=== PATIENT | male | born 1980 | race Caucasian/White ===

== ENCOUNTER 2016-10-26 19:29 | Emergency (ER) | payer OTHER ==
[2016-10-26 19:33] VITALS: BP 143/85; PULSE 77; RESP 18; TEMP 98
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
[2016-10-26] MEDS ORDERED: BUPIVACAINE (PF) 0.5% 30 ML VIAL SQ STA (19:47)
[2016-10-26] MEDS ORDERED: traMADol 50 MG STARTER PACK 3 TAB BTL PO STA (20:08)
== END 2016-10-26 20:18 | disposition home or self-care (01) ==
LOC: EC 19:29
DX: K02.9 Dental caries, unspecified (principal); F17.200 Nicotine dependence, unspecified, uncomplicated; Z88.5 Allergy status to narcotic agent
CPT/HCPCS: 64400; 99282

== ENCOUNTER 2016-10-27 03:19 | Emergency (ER) | payer OTHER ==
[2016-10-27 03:26] VITALS: PULSE 76
[2016-10-27] MEDS ORDERED: HYDROcodone/APAP 5-325MG 1 EACH TAB PO STA (03:29)
[2016-10-27] MEDS ORDERED: BUPIVACAINE (PF) 0.5% 30 ML VIAL SQ STA (03:29)
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
[2016-10-27 04:04] VITALS: BP 128/74; RESP 20; TEMP 97.4
== END 2016-10-27 04:05 | disposition home or self-care (01) ==
LOC: EC 03:19
DX: K02.9 Dental caries, unspecified (principal); S02.5XXA Fracture of tooth (traumatic), initial encounter for closed fracture
CPT/HCPCS: 64400; 99282

== ENCOUNTER 2016-11-18 17:56 | Emergency (ER) | payer OTHER ==
[2016-11-18 18:49] VITALS: BP 117/73; PULSE 81; RESP 20; TEMP 97.4
[2016-11-18] MEDS ORDERED: HYDROcodone/APAP 10-325MG 1 EACH TAB PO ONE (19:33)
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
== END 2016-11-18 19:49 | disposition home or self-care (01) ==
LOC: EC 17:56
DX: K02.9 Dental caries, unspecified (principal); F17.200 Nicotine dependence, unspecified, uncomplicated; Z88.5 Allergy status to narcotic agent
CPT/HCPCS: 99283

== ENCOUNTER 2016-11-25 13:06 | Emergency (ER) | payer OTHER ==
[2016-11-25 13:11] VITALS: BP 140/76; PULSE 112; RESP 20; TEMP 97.9
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
== END 2016-11-25 14:07 | disposition home or self-care (01) ==
LOC: EC 13:06
DX: K08.89 Other specified disorders of teeth and supporting structures (principal); F17.200 Nicotine dependence, unspecified, uncomplicated; Z88.5 Allergy status to narcotic agent
CPT/HCPCS: 99282

== ENCOUNTER 2016-12-05 09:42 | Emergency (ER) | payer OTHER ==
[2016-12-05 10:08] VITALS: RESP 20; TEMP 97.5
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
[2016-12-05 11:28] VITALS: BP 110/72; PULSE 89
== END 2016-12-05 11:20 | disposition home or self-care (01) ==
LOC: EC 09:42
DX: K04.7 Periapical abscess without sinus (principal); K02.9 Dental caries, unspecified; F17.200 Nicotine dependence, unspecified, uncomplicated; Z88.5 Allergy status to narcotic agent
CPT/HCPCS: 99282

== ENCOUNTER 2016-12-31 16:43 | Emergency (ER) | payer OTHER ==
[2016-12-31 16:57] VITALS: BP 113/75; PULSE 109; RESP 18; TEMP 97.6
[2016-12-31] MEDS ORDERED: KETOROLAC 60 MG/2 ML VIAL IM STA (17:04)
[2016-12-31] MEDS ORDERED: ORPHENADRINE 30 MG/ML 2 ML VIAL IM STA (17:04)
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
[2016-12-31 17:19] LABS: Appearance,Urine Clear (Clear); Bilirubin,Urine Negative (Negative); Glucose,Urine (UA) Negative (Negative); Ketones,Urine Negative (Negative); Leukocyte Esterase,Urine Negative (Negative); Nitrite,Urine Negative (Negative); PH, Urine 7.5 (5.0-8.0); Protein,Urine Negative (Negative); Specific Gravity,Urine 1.006 (1.001-1.035); UA Billing (MACRO vs. MICRO) CHEM; Urobilinogen,Urine <2.0 mg/dL (<2.0)
== END 2016-12-31 17:47 | disposition home or self-care (01) ==
LOC: EC 16:43
DX: M54.5 Low back pain (principal); F17.200 Nicotine dependence, unspecified, uncomplicated; Z88.5 Allergy status to narcotic agent; X50.9XXA Other and unspecified overexertion or strenuous movements or postures, initial encounter; Y99.0 Civilian activity done for income or pay
CPT/HCPCS: 81003; 99283; 96372 ×2; J2360; J1885

== ENCOUNTER 2017-01-09 13:15 | Emergency (ER) | payer OTHER ==
[2017-01-09 13:25] VITALS: BP 118/71; PULSE 100; RESP 20; TEMP 98.2
[2017-01-09] MEDS ORDERED: HYDROcodone/APAP 5-325MG 1 EACH TAB PO STA (13:40)
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
--- NOTE | 2017-01-09 14:01 | XR ---
EXAMINATION TYPE: XR lumbosacral spine min 4V DATE OF EXAM ORDERED: 01/09/2017 1:51 PM HISTORY: Pain. COMPARISON: Previous study dated 09/29/2011. FINDINGS: There is some straightening of the normal lumbar lordosis. Vertebral body height and alignment are maintained. There is no spondylolysis or spondylolisthesis. T here is disc space loss most marked at L5-S1 but also present at L4-5. There is hypertrophic spondylo sis at these levels. There is facet arthropathy in the L5-S1 facets bilaterally. The pedicles are int act. IMPRESSION: 1. NO ACUTE OSSEOUS LESION. 2. DEGENERATIVE CHANGE.
== END 2017-01-09 14:22 | disposition home or self-care (01) ==
LOC: EC 13:15
DX: M54.5 Low back pain (principal); F17.200 Nicotine dependence, unspecified, uncomplicated; Z88.5 Allergy status to narcotic agent
CPT/HCPCS: 72110; 99283

== ENCOUNTER 2017-03-14 14:34 | Emergency (ER) | payer OTHER ==
[2017-03-14 14:43] VITALS: BP 119/72; PULSE 87; RESP 18
[2017-03-14] MEDS ORDERED: ORPHENADRINE 30 MG/ML 2 ML VIAL IM STA (14:57)
[2017-03-14] MEDS ORDERED: KETOROLAC 60 MG/2 ML VIAL IM STA (14:57)
[2017-03-14 15:30] VITALS: TEMP 97.3
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
--- NOTE | 2017-03-14 15:40 | XR ---
EXAMINATION TYPE: XR lumbar spine 2 or 3V DATE OF EXAM: 03/14/2017 COMPARISON: 01/09/2017 HISTORY: Back pain TECHNIQUE: 3 views FINDINGS: Vertebra have normal alignment. There is narrowing at L4-5 L5-S1 disc spaces with spurring of the endplates. Posterior elements are intact. Sacroiliac joints appear normal. IMPRESSION: Spondylosis in the lower lumbar spine. No fracture. No change compared to old exam.
== END 2017-03-14 16:00 | disposition home or self-care (01) ==
LOC: EC 14:34
DX: S39.012A Strain of muscle, fascia and tendon of lower back, initial encounter (principal); M47.816 Spondylosis without myelopathy or radiculopathy, lumbar region; F17.200 Nicotine dependence, unspecified, uncomplicated; X50.9XXA Other and unspecified overexertion or strenuous movements or postures, initial encounter; Y93.89 Activity, other specified
CPT/HCPCS: 72100; 99283; 96372 ×2; J2360; J1885

== ENCOUNTER 2017-04-29 17:57 | Emergency (ER) | payer OTHER ==
[2017-04-29 18:04] VITALS: BP 127/73; PULSE 72; RESP 20; TEMP 97.8
[2017-04-29] MEDS ORDERED: predniSONE 50 MG TAB PO STA (18:22)
[2017-04-29] MEDS ORDERED: CYCLOBENZAPRINE 10 MG TAB PO STA (18:22)
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
== END 2017-04-29 18:35 | disposition left against medical advice (07) ==
LOC: EC 17:57
DX: S39.012A Strain of muscle, fascia and tendon of lower back, initial encounter (principal); F17.200 Nicotine dependence, unspecified, uncomplicated; Z53.29 Procedure and treatment not carried out because of patient's decision for other reasons; Z88.5 Allergy status to narcotic agent; X50.0XXA Overexertion from strenuous movement or load, initial encounter
CPT/HCPCS: 99282; J7512

== ENCOUNTER 2017-05-03 11:47 | Emergency (ER) | payer OTHER ==
[2017-05-03 11:58] VITALS: BP 122/74; PULSE 90; RESP 20; TEMP 98.1
[2017-05-03] MEDS ORDERED: ORPHENADRINE 30 MG/ML 2 ML VIAL IM STA (12:40)
[2017-05-03] MEDS ORDERED: methylPREDNISolone SOD SUCCI 125 MG/2 ML VIAL IM STA (12:40)
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
== END 2017-05-03 12:48 | disposition home or self-care (01) ==
LOC: EC 11:47
DX: S39.012A Strain of muscle, fascia and tendon of lower back, initial encounter (principal); F17.200 Nicotine dependence, unspecified, uncomplicated; Z88.5 Allergy status to narcotic agent; X50.9XXA Other and unspecified overexertion or strenuous movements or postures, initial encounter; Y93.H1 Activity, digging, shoveling and raking; Y92.89 Other specified places as the place of occurrence of the external cause
CPT/HCPCS: 99283; 96372 ×2; J2360; J2930

== ENCOUNTER 2017-05-24 07:07 | Emergency (ER) | payer OTHER ==
[2017-05-24 07:15] VITALS: BP 121/63; PULSE 80; RESP 18; TEMP 97
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
== END 2017-05-24 08:05 | disposition home or self-care (01) ==
LOC: EC 07:07
DX: L59.9 Disorder of the skin and subcutaneous tissue related to radiation, unspecified (principal); F17.200 Nicotine dependence, unspecified, uncomplicated; Z88.5 Allergy status to narcotic agent
CPT/HCPCS: 99282

== ENCOUNTER 2017-11-04 18:08 | Emergency (ER) | payer OTHER ==
[2017-11-04 18:12] VITALS: BP 149/84; PULSE 96; RESP 18; TEMP 98.2
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
== END 2017-11-04 19:45 | disposition home or self-care (01) ==
LOC: EC 18:08
DX: L29.9 Pruritus, unspecified (principal); F17.200 Nicotine dependence, unspecified, uncomplicated; Z88.5 Allergy status to narcotic agent
CPT/HCPCS: 99282

== ENCOUNTER 2018-04-03 12:20 | Emergency (ER) | payer OTHER ==
[2018-04-03 12:28] VITALS: BP 137/94; PULSE 107; RESP 16; TEMP 98.4
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
== END 2018-04-03 12:57 | disposition home or self-care (01) ==
LOC: EC 12:20
DX: M25.531 Pain in right wrist (principal); M54.9 Dorsalgia, unspecified; F17.200 Nicotine dependence, unspecified, uncomplicated; Z88.5 Allergy status to narcotic agent
CPT/HCPCS: 99283

== ENCOUNTER 2018-07-27 10:11 | Inpatient (IN) | payer MEDICAID, OTHER ==
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
[2018-07-27 13:54] LABS: Amphetamine Screen,Urine Detected (NotDetected); Barbiturate Screen,Urine Not Detected (NotDetected); Benzodiazepines Screen,Urine Not Detected (NotDetected); Cocaine Screen,Urine Not Detected (NotDetected); Methadone Screen, Urine Not Detected (NotDetected); Opiate Screen,Urine Detected (NotDetected); Oxycodone Screen, Urine Not Detected (NotDetected); Phencyclidine Screen,Urine Not Detected (NotDetected); Tricyclic Antidepressant,Urine Not Detected (NotDetected); Urn Cannabinoid Scrn Detected (NotDetected)
[2018-07-27] MEDS ORDERED: MAG HYDROX/AL HYDROX/SIMETH 30 ML CUP PO PRN (14:59)
[2018-07-27] MEDS ORDERED: MAGNESIUM HYDROXIDE 2,400 MG/10 ML CUP PO PRN (14:59)
[2018-07-27] MEDS ORDERED: ZIPRASIDONE 20 MG VIAL IM PRN (14:59)
[2018-07-27] MEDS ORDERED: DICYCLOMINE 10 MG CAP PO PRN (15:02)
[2018-07-27] MEDS ORDERED: LOPERAMIDE 2 MG CAP PO PRN (15:02)
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
[2018-07-27 19:45] VITALS: RESP 14
[2018-07-27] MEDS: ACETAMINOPHEN TAB 325 MG TAB PO PRN (19:47)
[2018-07-27] MEDS: ONDANSETRON 4 MG TAB PO PRN (19:47)
[2018-07-28 03:15] VITALS: BP 110/78; PULSE 70; TEMP 97.6
[2018-07-28] MEDS: ACETAMINOPHEN TAB 325 MG TAB PO PRN (03:16)
[2018-07-28] MEDS: ONDANSETRON 4 MG TAB PO PRN (03:17)
[2018-07-28] MEDS ORDERED: NICOTINE 14MG/24HR PATCH TRANSDERM SCH (09:00)
--- NOTE | 2018-07-28 09:47 | P.DS ---
Providers Date of admission: 07/27/18 14:53 Expected date of discharge: 07/28/18 Attending physician: Vinny Garcia DO Consults: 07/27/18 14:59 Consult Physician Routine Consulting Provider: Gisela Contreras Consult Reason/Comments: Medical Management Do you want consulting provider notified?: Yes Primary care physician: Stated None Hospital Course: The patient is a 37 yo M with the H of polysubstance abuse who is being seen in mental health unit. The patient was admitted for suicidality and notes that he recently had become homeless due to financial problems and had as a result relapsed into using heroin. He then had thoughts of hurting himself when he decided to come to the ED. He notes last use of Heroin was 2 days prior to presentation and that the only other substance hs uses is marijuana. He also endorsed chronic dasha lower back pain for which he takes OTC medications. He denied any active complaints including cough, chest pain, fever, chills, abdominal pain, nausea, vomiting, diarrhea, recent travel, or sick contacts. He presently denied having suicidal or homicidal ideation. The patient presents alert, pleasant, and cooperative. There calmly seated without any agitated behavior. [He] reports that [his] mood is good. Affect is congruent and euthymic. [He] deny having any suicidal or homicidal ideation intent or plan. [He] denies any auditory or visual hallucinations. There is no evidence of any delusional thought content. [His] thought process is linear and goal-directed. [His] speech is fluent and nonpressured. [His] memory and concentration is grossly intact for the purposes of this session. Discharge diagnoses: Polysubstance abuse with mood disorder Patient Condition at Discharge: Stable Plan - Discharge Summary Discharge Rx Participant: No New Discharge Prescriptions: Discontinued Pregabalin [Lyrica] 100 mg PO TID Buprenorphine HCl/Naloxone HCl [Suboxone 8 mg-2 mg Sl Film] 1 film SL TID Amitriptyline HCl [Elavil] 100 mg PO HS lamoTRIgine [LaMICtal] 100 mg PO BID Pregabalin [Lyrica] 100 mg PO TID Follow up Appointment(s)/Referral(s): [facility] [NON-STAFF] - 1 Week Patient Instructions/Handouts: How to Stop Smoking (GEN), Suicide Prevention ( GEN) Activity/Diet/Wound Care/Special Instructions: Activity and diet as tolerated. Avoid the use of street drugs and alcohol. Take all medications as prescribed. When you are in need of refills on your medications please contact your medical provider and/or outpatient psychiatrist to have this done. Please go to scheduled outpatient appointment for aftercare treatment. If symptoms return or become worse, call the crisis line at [phone] and/or go to the nearest emergency room for evaluation. Discharge Disposition: HOME SELF-CARE
[2018-07-28 10:57] LABS: Basophils % (A) 1 %; Eosinophils # (A) 0.1 k/uL (0-0.7); Eosinophils % (A) 2 %; HCT 45.3 % (39.0-53.0); HGB 15.3 gm/dL (13.0-17.5); Lymphocytes # (A) 1.2 k/uL (1.0-4.8); Lymphocytes % (A) 27 %; MCH 31.2 pg (25.0-35.0); MCHC 33.8 g/dL (31.0-37.0); MCV 92.2 fL (80.0-100.0); Mean Platelet Volume 8.3; Monocytes # (A) 0.3 k/uL (0-1.0); Monocytes % (A) 7 %; Neutrophils # (A) 2.9 k/uL (1.3-7.7); Neutrophils % (A) 62 %; Platelet Count 130 k/uL (150-450); RBC 4.91 m/uL (4.30-5.90); RDW 12.9 % (11.5-15.5); WBC 4.6 k/uL (3.8-10.6)
[2018-07-28 11:11] LABS: Chloride 109 mmol/L (98-107)
[2018-07-28 11:14] LABS: ALT 109 U/L (21-72); AST 59 U/L (17-59); Alkaline Phosphatase 77 U/L (38-126); Anion Gap 7 mmol/L; Blood Urea Nitrogen 17 mg/dL (9-20); Calcium 9.5 mg/dL (8.4-10.2); Carbon Dioxide 26 mmol/L (22-30); Cholesterol 149 mg/dL (<200); Glucose 90 mg/dL (74-99); HDL Cholesterol 38 mg/dL (40-60); LDL Cholesterol,Calculated 92 mg/dL (0-99); Potassium 4.3 mmol/L (3.5-5.1); Sodium 142 mmol/L (137-145); Total Bilirubin 0.5 mg/dL (0.2-1.3); Triglycerides 95 mg/dL (<150)
[2018-07-28 19:50] LABS: Hemoglobin A1C 5.5 % (4.0-6.0)
== END 2018-07-28 12:20 | disposition home or self-care (01) | DRG 881 ==
LOC: EC 10:11 → 3MHU 14:53
PROVIDERS: ADMIT Psychiatry & Neurology Psychiatry; ATTEND Psychiatry & Neurology Psychiatry
DX: F32.9 Major depressive disorder, single episode, unspecified (principal); R45.851 Suicidal ideations; F11.23 Opioid dependence with withdrawal; F17.210 Nicotine dependence, cigarettes, uncomplicated; F41.9 Anxiety disorder, unspecified; G89.29 Other chronic pain; Z59.0 Homelessness; M54.9 Dorsalgia, unspecified; Z88.5 Allergy status to narcotic agent; F12.90 Cannabis use, unspecified, uncomplicated
CPT/HCPCS: 80053; 80061; 80306; 82075; 83036; 84443; 85025; 99285

== ENCOUNTER 2018-12-28 13:34 | Emergency (ER) | payer OTHER ==
[2018-12-28 13:45] VITALS: RESP 18
[2018-12-28] MEDS ORDERED: PROPARACAINE 0.5% OPHTH DROPS 15 ML BTL BOTH EYES STA (14:05)
[2018-12-28] MEDS ORDERED: ERYTHROMYCIN 5 MG/GM OPHTH OINT 3.5 GM TUBE BOTH EYES STA (14:05)
[2018-12-28] MEDS ORDERED: DIPH,PERTUS(ACELL)TETVAC-LF 0.5 ML VIAL IM ONE (14:06)
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
[2018-12-28 14:59] VITALS: BP 110/68; PULSE 82; TEMP 98
== END 2018-12-28 14:57 | disposition home or self-care (01) ==
LOC: EC 13:34
DX: S05.01XA Injury of conjunctiva and corneal abrasion without foreign body, right eye, initial encounter (principal); H57.12 Ocular pain, left eye; Z79.891 Long term (current) use of opiate analgesic; Z79.899 Other long term (current) drug therapy; Z88.5 Allergy status to narcotic agent; F41.9 Anxiety disorder, unspecified; F32.9 Major depressive disorder, single episode, unspecified; F17.200 Nicotine dependence, unspecified, uncomplicated; Z23 Encounter for immunization; X58.XXXA Exposure to other specified factors, initial encounter
CPT/HCPCS: 90471; 90715; 99283

== ENCOUNTER 2021-01-20 17:36 | Emergency (ER) | payer OTHER ==
[2021-01-20 17:40] VITALS: BP 160/96; PULSE 100; RESP 16; TEMP 98.3
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
--- NOTE | 2021-01-20 18:25 | XR ---
EXAMINATION TYPE: XR KUB DATE OF EXAM: 01/20/2021 COMPARISON: NONE HISTORY: Abdominal pain TECHNIQUE: 2 views upright FINDINGS: Bowel gas pattern is normal. There is no sign of intestinal obstruction or pneumoperitoneum . Fecal pattern is normal. Lung bases are clear. There are no pathologic calcifications over the kidn eys. IMPRESSION: Nonacute abdomen.
[2021-01-20] MEDS ORDERED: MAGNESIUM CITRATE 296 ML BOTTLE PO ONE (18:28)
== END 2021-01-20 18:46 | disposition home or self-care (01) ==
LOC: EC 17:36
DX: R10.9 Unspecified abdominal pain (principal); F17.200 Nicotine dependence, unspecified, uncomplicated; F12.90 Cannabis use, unspecified, uncomplicated; F11.90 Opioid use, unspecified, uncomplicated; F19.90 Other psychoactive substance use, unspecified, uncomplicated; F41.9 Anxiety disorder, unspecified; F32.9 Major depressive disorder, single episode, unspecified
CPT/HCPCS: 74018; 99284

== ENCOUNTER 2021-01-25 19:05 | Emergency (ER) | payer OTHER ==
[2021-01-25 19:18] VITALS: BP 145/89; PULSE 99; RESP 18; TEMP 98.4
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
--- NOTE | 2021-01-25 19:56 | XR ---
EXAMINATION TYPE: XR KUB DATE OF EXAM: 01/25/2021 COMPARISON: 01/20/2021 HISTORY: Constipation TECHNIQUE: 3 views FINDINGS: Supine and upright views show no sign of intestinal obstruction or pneumoperitoneum. Fecal pattern is normal. Lung bases are clear. There are no pathologic calcifications over the kidneys. Bon y structures are intact. IMPRESSION: Nonacute abdomen. No change.
[2021-01-25] MEDS ORDERED: MAGNESIUM CITRATE 296 ML BOTTLE PO ONE (20:24)
== END 2021-01-25 21:00 | disposition home or self-care (01) ==
LOC: EC 19:05
DX: K59.00 Constipation, unspecified (principal); F32.9 Major depressive disorder, single episode, unspecified; F17.200 Nicotine dependence, unspecified, uncomplicated; F12.90 Cannabis use, unspecified, uncomplicated
CPT/HCPCS: 74018; 99283

== ENCOUNTER 2021-01-29 19:31 | Emergency (ER) | payer OTHER ==
[2021-01-29 19:49] VITALS: TEMP 98.1
[2021-01-29 21:41] LABS: Basophils % (A) 1 %; Eosinophils # (A) 0.2 k/uL (0-0.7); Eosinophils % (A) 4 %; HCT 41.3 % (39.0-53.0); Lymphocytes # (A) 1.5 k/uL (1.0-4.8); Lymphocytes % (A) 34 %; MCH 31.2 pg (25.0-35.0); MCHC 33.8 g/dL (31.0-37.0); MCV 92.4 fL (80.0-100.0); Mean Platelet Volume 7.7; Monocytes # (A) 0.4 k/uL (0-1.0); Monocytes % (A) 9 %; Neutrophils # (A) 2.2 k/uL (1.3-7.7); Neutrophils % (A) 51 %; Platelet Count 136 k/uL (150-450); RBC 4.47 m/uL (4.30-5.90); RDW 13.6 % (11.5-15.5); WBC 4.3 k/uL (3.8-10.6)
[2021-01-29 21:52] LABS: ALT 35 U/L (4-49); AST 51 U/L (17-59); African American GFR (CKD) >90 (>60 ml/min/1.73 sqM); Albumin 3.7 g/dL (3.5-5.0); Alkaline Phosphatase 115 U/L (38-126); Anion Gap 4 mmol/L; Blood Urea Nitrogen 11 mg/dL (9-20); Calcium 8.7 mg/dL (8.4-10.2); Carbon Dioxide 27 mmol/L (22-30); Chloride 107 mmol/L (98-107); Glucose 86 mg/dL (74-99); Non-African American GFR(CKD) 83 (>60 ml/min/1.73 sqM); Potassium 4.7 mmol/L (3.5-5.1); Sodium 138 mmol/L (137-145); Total Bilirubin 0.5 mg/dL (0.2-1.3); Total Protein 6.6 g/dL (6.3-8.2)
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
--- NOTE | 2021-01-29 22:33 | US ---
EXAMINATION TYPE: US venous doppler duplex LE DATE OF EXAM: 01/29/2021 10:18 PM COMPARISON: NONE CLINICAL HISTORY: r/o dvt, pain swelling. Pain in legs x 2 days. No hx of DVT. Patient does not take blood thinners. SIDE PERFORMED: Bilateral TECHNIQUE: The lower extremity deep venous system is examined utilizing real time linear array sonog van with graded compression, doppler sonography and color-flow sonography. VESSELS IMAGED: Common Femoral Vein Deep Femoral Vein Greater Saphenous Vein * Femoral Vein Popliteal Vein Small Saphenous Vein * Proximal Calf Veins (* superficial vessels) Right Leg: No evidence of DVT in veins imaged at this time. Left Leg: No evidence of DVT in veins imaged at this time. Hypoechoic area with hyperechoic center s een within the left groin: 2.0 x 2.8 x 0.7 cm. IMPRESSION: No evidence of deep vein thrombosis in both legs.
[2021-01-29] MEDS ORDERED: DIPH,PERTUS(ACELL)TETVAC-LF 0.5 ML VIAL IM ONE (22:44)
[2021-01-29 23:28] LABS: Appearance,Urine Clear (Clear); Bilirubin,Urine Negative (Negative); Blood,Urine Negative (Negative); Color,Urine Light Yellow; Glucose,Urine (UA) Negative (Negative); Ketones,Urine Negative (Negative); Leukocyte Esterase,Urine Negative (Negative); Nitrite,Urine Negative (Negative); PH, Urine 6.5 (5.0-8.0); Protein,Urine Negative (Negative); Specific Gravity,Urine 1.012 (1.001-1.035); Urobilinogen,Urine <2.0 mg/dL (<2.0)
[2021-01-29 23:29] VITALS: BP 130/86; PULSE 73; RESP 15
== END 2021-01-29 23:24 | disposition home or self-care (01) ==
LOC: EC 19:31
DX: I89.0 Lymphedema, not elsewhere classified (principal); L03.116 Cellulitis of left lower limb; F32.9 Major depressive disorder, single episode, unspecified; F17.200 Nicotine dependence, unspecified, uncomplicated; F12.90 Cannabis use, unspecified, uncomplicated; Z23 Encounter for immunization
CPT/HCPCS: 36415; 80053; 81003; 85025; 90471; 90715; 93970; 99284

== ENCOUNTER 2021-02-04 19:22 | Emergency (ER) | payer OTHER ==
[2021-02-04 19:26] VITALS: RESP 18
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
--- NOTE | 2021-02-04 21:48 | XR ---
EXAMINATION TYPE: XR foot complete bilateral DATE OF EXAM: 02/04/2021 COMPARISON: 03/08/2011 HISTORY: Bilateral foot pain. TECHNIQUE: 3 views each foot FINDINGS: The metatarsals are intact. I see no fracture nor dislocation. There is narrowing and spurr ing at the right foot first MP joint. There are no erosions. There is no subluxation. Calcaneus appea rs intact. IMPRESSION: Moderate osteoarthritis at the right first MP joint that has progressed compared to old e xam. No fracture seen. No evidence of inflammatory arthritis.
[2021-02-04 22:07] LABS: Albumin 3.9 g/dL (3.5-5.0); Calcium 8.7 mg/dL (8.4-10.2); Potassium 4.3 mmol/L (3.5-5.1); Total Bilirubin 0.3 mg/dL (0.2-1.3); Total Protein 6.8 g/dL (6.3-8.2)
[2021-02-04 22:11] LABS: Basophils # (A) 0.1 k/uL (0-0.2); Basophils % (A) 1 %; Eosinophils # (A) 0.2 k/uL (0-0.7); Eosinophils % (A) 4 %; HCT 42.5 % (39.0-53.0); HGB 13.9 gm/dL (13.0-17.5); Lymphocytes # (A) 1.6 k/uL (1.0-4.8); Lymphocytes % (A) 36 %; MCH 30.4 pg (25.0-35.0); MCHC 32.6 g/dL (31.0-37.0); MCV 93.3 fL (80.0-100.0); Mean Platelet Volume 7.9; Monocytes # (A) 0.3 k/uL (0-1.0); Monocytes % (A) 7 %; Neutrophils # (A) 2.2 k/uL (1.3-7.7); Neutrophils % (A) 49 %; Platelet Count 174 k/uL (150-450); RBC 4.56 m/uL (4.30-5.90); RDW 13.8 % (11.5-15.5); WBC 4.5 k/uL (3.8-10.6)
[2021-02-04 22:38] VITALS: BP 111/75; PULSE 71; TEMP 97.6
== END 2021-02-04 22:41 | disposition home or self-care (01) ==
LOC: EC 19:22
DX: M79.671 Pain in right foot (principal); M79.672 Pain in left foot; F32.9 Major depressive disorder, single episode, unspecified; F17.200 Nicotine dependence, unspecified, uncomplicated; F12.90 Cannabis use, unspecified, uncomplicated; F41.9 Anxiety disorder, unspecified
CPT/HCPCS: 36415; 80053; 85025; 99283

== ENCOUNTER 2021-03-16 23:00 | Emergency (ER) | payer OTHER ==
[2021-03-16 23:07] VITALS: BP 142/91; PULSE 112; RESP 18; TEMP 97.6
[2021-03-16] MEDS ORDERED: traMADol 50 MG STARTER PACK 3 TAB BTL PO STA (23:30)
[2021-03-16] MEDS ORDERED: KETOROLAC 15 MG/ML 1 ML VIAL IM STA (23:30)
--- NOTE | 2021-03-17 00:04 | XR ---
EXAMINATION TYPE: XR knee complete RT DATE OF EXAM: 03/16/2021 COMPARISON: NONE HISTORY: Knee pain TECHNIQUE: 3 views FINDINGS: I see no fracture nor dislocation. Joint spaces are normal. There is no sign of knee joint effusion. IMPRESSION: Negative right knee exam.
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
== END 2021-03-17 00:09 | disposition home or self-care (01) ==
LOC: EC 23:00
DX: M25.561 Pain in right knee (principal); K21.9 Gastro-esophageal reflux disease without esophagitis; F32.9 Major depressive disorder, single episode, unspecified; F41.9 Anxiety disorder, unspecified; F17.200 Nicotine dependence, unspecified, uncomplicated; F12.90 Cannabis use, unspecified, uncomplicated; F11.90 Opioid use, unspecified, uncomplicated; Z79.899 Other long term (current) drug therapy; Z88.5 Allergy status to narcotic agent; X50.1XXA Overexertion from prolonged static or awkward postures, initial encounter
CPT/HCPCS: 96372; 99283; 73562; J1885